=== PATIENT | female | born 1955 | race Caucasian/White ===

== ENCOUNTER 2017-12-21 18:09 | Inpatient (IN) | payer MEDICAID ==
[~2017-12-21] VITALS: Ht 167.6 cm; Wt 70.8 kg
[~2017-12-21 18:09] MED LIST: AFRIN15 ML NS; ALPRAZOLAM; AMOXICILLIN875 MG PO; APAP500 PO; ATIVAN0.5 MG PO; BROVANA15 MCG/2 M INH; BUSPIRONE HCL10 MG PO; CLONAZEPAM 1 MG1 M1 PO; CYMBALTA30 MG PO; DOXYCYCLINE 10100 MG PO; DULOXETINE HCL30 MG PO; DUONEB 2.5-0.5 M3 ML INH; FLEXERIL PO; GABAPENTIN 100100 MG PO; HYDROCODONE-AP1 EAC6 PO; IBUPROFEN 800800 M1 PO; LEVAQUIN 250 M250 MG PO; LIPITOR 20 MG T20 M1 PO; LIPITOR10 MG PO; MOBIC7.5 M1 PO; MUCINEX TA600 MG/TA2 PO; MYSOLINE50 MG PO; NORCO 5-325 TA1 EAC1 PO; NORCO 5-325 TA1 EACH PO; NORVASC2.5 MG PO; PANTOPRAZOLE SO40 M1 PO; PAXIL30 MG; PAXIL30 MG PO; PREDNISONE 10 M10 MG PO; PREDNISONE50 MG PO; PRILOSEC 20 MG20 MG PO; PRIMIDONE50 MG PO; PROPRANOLOL 1010 MG PO; PROPRANOLOL 4040 MG PO; ROBAXIN 750 MG750 M1 PO; SEROQUEL 25 MG25 M1 PO; SINGULAIR 10 MG10 MG PO; SYMBICORT160 MCG/4. PO; TRAZODONE HCL50 MG PO; VENTOLIN HFA 1818 GM INH; VITAMIN D1000 UNI1 PO; XOPENEX 0.63 MG/3 M1 INH; ZYRTEC10 MG PO
[2017-12-21 18:25] VITALS: BP 140/86
[2017-12-21 19:06] LABS: BE -0.2 mmol/L (-2 to +3); HCO3 25.2 mmol/L (22.0-26.0); PCO2 43.8 mmHg (35.0-45.0); pH 7.377 (7.340-7.450)
[2017-12-21 19:08] LABS: PO2 49.8 mmHg (75.0-100.0)
[2017-12-21 19:23] LABS: ABSOLUTE BASOPHILS 0.1 thou/uL (0.0-0.2); ABSOLUTE EOSINOPHILS 0.4 thou/uL (0.0-0.7); ABSOLUTE LYMPHOCYTES 3.6 thou/uL (0.8-5.3); ABSOLUTE MONOCYTES 0.7 thou/uL (0.0-1.2); ABSOLUTE NEUTROPHILS 6.1 thou/uL (1.6-8.1); BASOPHILS 1.2 %; EOSINOPHILS 3.2 %; HEMATOCRIT 41.4 % (37.0-47.0); HEMOGLOBIN 13.7 gm/dL (12.0-15.0); LYMPHOCYTES 32.6 %; MCH 29.2 pg (26.0-34.0); MCHC 33.1 g/dL (28.0-37.0); MCV 88.2 fL (80.0-100.0); MONOCYTES 6.7 %; MPV 8.4 fl. (7.2-11.1); NUCLEATED RBCS 0 /100WBC; PLATELET COUNT* 248 thou/uL (150-400); POLYS 56.3 %; RDW-CV 14.7 % (10.5-14.5); WBC 10.9 thou/uL (4.0-11.0)
[2017-12-21 19:33] LABS: ANION GAP 5 mmol/L (7-16); BUN 20 mg/dL (7-18); CALCIUM 8.7 mg/dL (8.5-10.1); CHLORIDE 104 mmol/L (98-107); CO2 31 mmol/L (21-32); GLUCOSE 92 mg/dL (70-99); POTASSIUM 4.6 mmol/L (3.5-5.1); SODIUM 140 mmol/L (136-145)
[2017-12-21 19:40] LABS: ALBUMIN 3.2 g/dL (3.4-5.0); ALKALINE PHOSPHATASE 92 U/L (46-116); SGOT 16 U/L (15-37); SGPT 16 U/L (30-65); TOTAL BILIRUBIN 0.3 mg/dL (<0.1-1.0); TOTAL PROTEIN 7.2 g/dL (6.4-8.2); TROPONIN-I LEVEL <0.06 ng/mL (<0.06)
[2017-12-21 20:27] LABS: URINE BILIRUBIN NEGATIVE (Negative); URINE BLOOD NEGATIVE (Negative); URINE CLARITY CLEAR; URINE COLOR YELLOW; URINE GLUCOSE-RANDOM NEGATIVE (Negative); URINE KETONES NEGATIVE (Negative); URINE LEUKOCYTES-REFLEX TRACE (Negative); URINE NITRITE-REFLEX NEGATIVE (Negative); URINE PROTEIN NEGATIVE (Negative); URINE SPECIFIC GRAVITY 1.025 (1.005-1.030); URINE UROBILINOGEN 0.2 E.U./dl (0.2-1.0)
[2017-12-21 20:33] LABS: BACTERIA-REFLEX 1-9 Few /HPF (None Seen); CRYSTALS None Seen /LPF (None Seen); HYALINE CASTS 4-10 Moderate /LPF (None Seen); MUCUS 0-3 Light strn/LPF (None Seen); SQUAMOUS >10 Many /LPF (0-3); URINE WBC-REFLEX 0-5 Rare /HPF (0-5)
[2017-12-21 20:34] LABS: URINE RBC None Seen /HPF (0-2)
--- NOTE | 2017-12-21 21:15 | NUR ---
PT ADMITTED TO FLOOR PER CART ACCOMPANIED BY FAMILY WITH BELONGINGS. WALKS WITH ASSIST FAIRLY STEADY GAIT FROM CART TO BED. AO X4, FLAT, SLIGHTLY ANXIOUS. DENIES PAIN AT PRESENT, STATES SHE NEEDS HER NIGHT MEDICATIONS. HISTORY OBTAINED AND ASSESSMENT PERFORMED, SEE ADMIT NOTES.CALL LITE IN EASY REACH, BED ALARM ON FOR SAFETY. WILL CONTINUE TO MONITOR AND PROVIDE CARES NEEDED.
[2017-12-21 21:30] VITALS: BP 112/67; BP 112/74
[2017-12-22 05:10] LABS: HEMATOCRIT 37.2 % (37.0-47.0); HEMOGLOBIN 12.4 gm/dL (12.0-15.0); MCH 29.1 pg (26.0-34.0); MCHC 33.4 g/dL (28.0-37.0); MCV 87.1 fL (80.0-100.0); MPV 8.9 fl. (7.2-11.1); RBC 4.27 mil/uL (4.20-5.00); WBC 6.7 thou/uL (4.0-11.0)
[2017-12-22 05:29] LABS: ALBUMIN 2.8 g/dL (3.4-5.0); CALCIUM 8.3 mg/dL (8.5-10.1); CREATININE 1.1 mg/dL (0.6-1.3); POTASSIUM 5.3 mmol/L (3.5-5.1); TOTAL BILIRUBIN 0.1 mg/dL (<0.1-1.0); TOTAL PROTEIN 6.4 g/dL (6.4-8.2)
--- NOTE | 2017-12-22 06:43 | NUR ---
NEW ADMISSION OVERNIGHT. PT HAS SLEPT FAIRLY WELL SINCE ADMIT, NO COMPLAINTS OF PAIN OR PROBLEMS. CONGESTED COUGH HEARD, RT TX GIVEN. AM LAB. O23L. INCONTINENT BRIEF ON. ABLE TO USE CALL LITE AND MAKE NEEDS KNOWN, BED ALARM ON FOR SAFETY. UP WITH SBA TO BR TO VOID ALSO. AM LABS DRAWN.
[2017-12-22 08:25] VITALS: BP 137/77
--- NOTE | 2017-12-22 11:20 | NUR ---
CM SPOKE TO THE PATIENT TO DISCUSS HOME SITUATION, DISCHARGE PLANNING, AND TO INFORM OF THE ROLE OF CM. PATIENT ALERT AND ORIENTED. PATIENT RESIDES AT HOME ALONE. PATIENT HAS CAREGIVER SERVICES THRU [facility], AND THEY PROVIDE A NURSE ONCE PER WEEK. PATIENT PAYS A SERVICE TO CLEAN HER HOME AND HER DTR ASSIST WITH MEALS. PATIENT USES HOME O2 AND NEBULIZER. PATIENT HAS NO HX OF HH OR SNF, AND PLANS TO RETURN HOME AT D/C. CM WILL REMAIN AVAILABLE TO TO ASSIST AND FOLLOW NEEDED.
--- NOTE | 2017-12-22 14:43 | EKG ---
[place] [address] ELECTROCARDIOGRAM REPORT Name: ANAND ROBB Room: [address] ADM IN M.R.#: [id number] Admission: 12/21/17 Attend Phys: Raza Barrientos Discharge: Date of : 55 Report #: [id number] THIS REPORT FOR: //name// [facility] ED Test Date: 2017-12-21 Test Time: 18:50:33 Pat Name: ANAND ROBB Department: Room: [facility] Gender: F Loading Unit Operator Powder Charging: Viji BERMAN : 1955 Requested By: Anne Potter Order Number: [id number] MD: Al Lowe Measurements Intervals [place] Rate: 61 P: 44 CA: 147 QRS: 65 QRSD: 88 T: 55 QT: 407 QTc: 410 Interpretive Statements Sinus rhythm Low voltage, extremity leads Compared to ECG 06/23/2017 16:41:00 Low QRS voltage now present Electronically Signed On 12-22-2017 14:43:07 CDT by Al Lowe [email or web address] <ELECTRONICALLY SIGNED> By: Al Lowe MD, FACC 12/22/17 1443 1850 1850 Al Lowe MD, FAC /EPI
[2017-12-22 16:00] VITALS: BP 120/75
--- NOTE | 2017-12-22 19:54 | NUR ---
PATIENT HAS BEEN A/O X 4 THIS SHIFT. MEDICATED FOR HEADACHE WITH TYLENOL WITH RELIEF. O2 IN PLACE WHEN PATIENT WEARS IT. ROOM AIR SAT NOTED TO BE 91-92%. UP WITH STAND BY ASSIST TO BATHROOM. TOLERATING DIET. TO HAVE REPEAT CHEST XRAY IN AM. CONTINUES ON RT TREATMENTS. URINE SENT PER ORDERS. HOURLY ROUNDING COMPLETED. CALL LIGHT WITHIN REACH. WILL CONTINUE WITH PLAN OF CARE.
[2017-12-22 22:22] VITALS: BP 112/67
[2017-12-23 05:07] LABS: HEMATOCRIT 36.6 % (37.0-47.0); HEMOGLOBIN 12.2 gm/dL (12.0-15.0); MCH 28.8 pg (26.0-34.0); MCHC 33.2 g/dL (28.0-37.0); MCV 86.9 fL (80.0-100.0); MPV 8.7 fl. (7.2-11.1); RBC 4.22 mil/uL (4.20-5.00); WBC 10.6 thou/uL (4.0-11.0)
[2017-12-23 05:15] LABS: CALCIUM 8.8 mg/dL (8.5-10.1); CREATININE 1.1 mg/dL (0.6-1.3); MAGNESIUM 1.7 mg/dL (1.8-2.4); POTASSIUM 5.4 mmol/L (3.5-5.1)
[2017-12-23 09:10] VITALS: BP 125/75
--- NOTE | 2017-12-23 10:33 | NUR ---
IV RESTARTED THIS AM. IV LEVAQUIN STARTED AND PATIENT CALLED STATING SHE HAD A RED STREAK GOING UP VEIN. IV LEVAQUIN STOPPED AND DR NOTIFIED OF THE ABOVE.
[2017-12-23 16:54] VITALS: BP 139/89
--- NOTE | 2017-12-23 18:51 | NUR ---
PATIENT HAS BEEN A/O X 4 THIS SHIFT. HAS DENIED PAIN OR SHORTNESS OF AIR. HAS BEEN ON ROOM AIR WITH O2 SAT 90-92%. HAS DRY NON PRODUCTIVE COUGH. UP AD KAMRAN IN ROOM. IV STEROIDS ADMINISTERED. CONTINUES ON BREATHING TREATMENTS. HAD REPEAT CHEST XRAY TODAY. HOPEFUL TO BE DISCHARGED HOME SOON. HOURLY ROUNDING COMPLETED. CALL LIGHT WITHIN REACH. WILL CONTINUE WITH PLAN OF CARE.
[2017-12-23 19:42] VITALS: BP 104/66
[2017-12-24 05:06] LABS: HEMATOCRIT 35.6 % (37.0-47.0); HEMOGLOBIN 11.9 gm/dL (12.0-15.0); MCH 28.7 pg (26.0-34.0); MCHC 33.4 g/dL (28.0-37.0); MCV 86.1 fL (80.0-100.0); MPV 8.6 fl. (7.2-11.1); NUCLEATED RBCS 0 /100WBC; PLATELET COUNT* 303 thou/uL (150-400); RBC 4.13 mil/uL (4.20-5.00); RDW-CV 14.9 % (10.5-14.5); WBC 10.7 thou/uL (4.0-11.0)
[2017-12-24 05:42] LABS: ALBUMIN 2.9 g/dL (3.4-5.0); CALCIUM 8.6 mg/dL (8.5-10.1); POTASSIUM 5.3 mmol/L (3.5-5.1); TOTAL BILIRUBIN 0.2 mg/dL (<0.1-1.0); TOTAL PROTEIN 6.5 g/dL (6.4-8.2)
[2017-12-24 06:03] LABS: ABSOLUTE LYMPHOCYTES 1.6 thou/uL (0.8-5.3); ABSOLUTE MONOCYTES 0.1 thou/uL (0.0-1.2); ANISOCYTOSIS 1+; PLATELET ESTIMATE ADEQUATE; POIKILOCYTOSIS 1+
--- NOTE | 2017-12-24 06:09 | NUR ---
ASSESSMENT COMPLETE. PT SLEPT MOST OF THE NIGHT. TYLENOL GIVEN FOR HEADACHE. PT DENIES AND N/V. PT IS ON 2L PER NC WITH ADEQUATE SATS. TREMORS NOTED AND PT STATES THEY WORSEN WITH SOLUMEDROL. PT HAS IV IN RIGHT HAND, SALINE LOCKED AND FLUSHES WITHOUT DIFFICULTY. PT IS UP STANDBY ASSIST TO BATHROOM. PT TURNS SELF IN BED DURING THE NIGHT. SEE ASSESSMENT AND VITALS FOR OTHER DETAILS. CALL LIGHT WITHIN REACH, WILL CONTINUE PLAN OF CARE
[2017-12-24 08:15] VITALS: BP 131/74
[2017-12-24] MEDS ORDERED: PREDNISONE 10 M10 MG PO (11:01)
[2017-12-24] MEDS ORDERED: LEVAQUIN 500 M500 M3 PO (11:02)
[2017-12-24] MEDS ORDERED: PROTONIX40 M1 PO (11:03)
[2017-12-24 11:04] VITALS: BP 131/74
[2017-12-24 12:07] VITALS: BP 131/74
--- NOTE | 2017-12-24 12:09 | NUR ---
PATIENT IS ALERT AND ORIENTED TODAY. VITAL SIGNS STABLE ON ROOM AIR TODAY. UP AD KAMRAN IN ROOM. NO COMPLAINTS OF ANY PAIN. PATIENT IS BEING DISCHARGED TO HOME. PRESCRIPTIONS AND DISCHARGE INSTRUCTIONS GIVEM WITH QUESTIONS ANSWERED FOR PATIENT. LEFT VIA WHEELCHAIR TO HOME.
== END 2017-12-24 12:14 | disposition home or self-care (01) | DRG 177 ==
LOC: M.ERS 18:09 → M.TBA-ER 20:04 → M.3W 20:04
PROVIDERS: Emergency Medicine; Internal Medicine; Personal Emergency Response Attendant; ADMIT Internal Medicine
DX: J15.8 Pneumonia due to other specified bacteria (principal); J96.01 Acute respiratory failure with hypoxia; J44.1 Chronic obstructive pulmonary disease with (acute) exacerbation; J44.0 Chronic obstructive pulmonary disease with (acute) lower respiratory infection; F17.210 Nicotine dependence, cigarettes, uncomplicated; F12.90 Cannabis use, unspecified, uncomplicated; N18.2 Chronic kidney disease, stage 2 (mild); F31.9 Bipolar disorder, unspecified; G25.0 Essential tremor; B19.20 Unspecified viral hepatitis C without hepatic coma; I12.9 Hypertensive chronic kidney disease with stage 1 through stage 4 chronic kidney disease, or unspecified chronic kidney disease; Z88.8 Allergy status to other drugs, medicaments and biological substances; Z82.5 Family history of asthma and other chronic lower respiratory diseases; Z82.49 Family history of ischemic heart disease and other diseases of the circulatory system

== ENCOUNTER 2018-01-15 14:06 | Emergency (ER) | payer MEDICAID ==
[~2018-01-15] VITALS: Ht 167.6 cm; Wt 72.6 kg
[~2018-01-15 14:06] MED LIST changes: +LEVAQUIN 500 M500 M3 PO; +PROTONIX40 M1 PO
[2018-01-15] MEDS ORDERED: FLONASE 0.05%50 MCG NASAL (14:28)
[2018-01-15] MEDS ORDERED: BENZONATATE200 MG PO (15:15)
[2018-01-15] MEDS ORDERED: VENTOLIN HFA INH8 GM INH (15:15)
[2018-01-15] MEDS ORDERED: MEDROLDOSEPACK PO (15:15)
[2018-01-15 15:29] VITALS: BP 161/95
== END 2018-01-15 15:30 | disposition home or self-care (01) ==
LOC: M.ERS 14:06
DX: J40 Bronchitis, not specified as acute or chronic (principal); J44.9 Chronic obstructive pulmonary disease, unspecified; I10 Essential (primary) hypertension; F31.9 Bipolar disorder, unspecified; F17.210 Nicotine dependence, cigarettes, uncomplicated; Z86.19 Personal history of other infectious and parasitic diseases; Z88.8 Allergy status to other drugs, medicaments and biological substances; Z88.6 Allergy status to analgesic agent

== ENCOUNTER 2018-03-25 09:55 | Emergency (ER) | payer MEDICAID ==
[~2018-03-25] VITALS: Ht 165.1 cm; Wt 68.0 kg
[~2018-03-25 09:55] MED LIST changes: +BENZONATATE200 MG PO; +FLONASE 0.05%50 MCG NASAL; +MEDROLDOSEPACK PO; +VENTOLIN HFA INH8 GM INH
[2018-03-25] MEDS ORDERED: BACTRIM DS TAB1 EACH PO (10:11)
[2018-03-25 10:43] LABS: ABSOLUTE BASOPHILS 0.1 thou/uL (0.0-0.2); ABSOLUTE EOSINOPHILS 0.1 thou/uL (0.0-0.7); ABSOLUTE LYMPHOCYTES 1.4 thou/uL (0.8-5.3); ABSOLUTE MONOCYTES 0.9 thou/uL (0.0-1.2); ABSOLUTE NEUTROPHILS 6.3 thou/uL (1.6-8.1); EOSINOPHILS 1.6 %; HEMATOCRIT 37.6 % (37.0-47.0); HEMOGLOBIN 12.2 gm/dL (12.0-15.0); MCH 28.9 pg (26.0-34.0); MCHC 32.5 g/dL (28.0-37.0); MCV 88.8 fL (80.0-100.0); MONOCYTES 9.9 %; MPV 8.7 fl. (7.2-11.1); NUCLEATED RBCS 0 /100WBC; PLATELET COUNT* 271 thou/uL (150-400); POLYS 71.5 %; RBC 4.23 mil/uL (4.20-5.00); RDW-CV 15.3 % (10.5-14.5); WBC 8.9 thou/uL (4.0-11.0)
[2018-03-25 11:00] LABS: ANION GAP 6 mmol/L (7-16); BUN 15 mg/dL (7-18); CALCIUM 8.2 mg/dL (8.5-10.1); CHLORIDE 105 mmol/L (98-107); CO2 29 mmol/L (21-32); CREATININE 1.2 mg/dL (0.6-1.3); GLUCOSE 114 mg/dL (70-99); POTASSIUM 3.8 mmol/L (3.5-5.1); SODIUM 140 mmol/L (136-145)
[2018-03-25 11:12] LABS: ALBUMIN 3.2 g/dL (3.4-5.0); ALKALINE PHOSPHATASE 69 U/L (46-116); NT-PRO BRAIN NAT PEPTIDE 522 pg/mL (<300); SGOT 12 U/L (15-37); SGPT 14 U/L (30-65); TOTAL BILIRUBIN 0.3 mg/dL (<0.1-1.0); TOTAL PROTEIN 6.6 g/dL (6.4-8.2); TROPONIN-I LEVEL <0.06 ng/mL (<0.06)
[2018-03-25 11:33] LABS: URINE BLOOD NEGATIVE (Negative); URINE CLARITY CLEAR; URINE COLOR YELLOW; URINE GLUCOSE-RANDOM NEGATIVE (Negative); URINE KETONES NEGATIVE (Negative); URINE LEUKOCYTES-REFLEX TRACE (Negative); URINE NITRITE-REFLEX NEGATIVE (Negative); URINE PROTEIN NEGATIVE (Negative); URINE SPECIFIC GRAVITY >= 1.030 (1.005-1.030); URINE UROBILINOGEN 0.2 E.U./dl (0.2-1.0)
[2018-03-25 11:34] LABS: ICTOTEST (BILI CONFIRMATORY) Negative (Negative); URINE BILIRUBIN 1+ (Negative)
[2018-03-25 11:41] LABS: AMP/METHAMP Negative (Negative); BACTERIA-REFLEX 1-9 Few /HPF (None Seen); BARBITURATES POSITIVE (Negative); BENZODIAZEPINES Negative (Negative); COCAINE Negative (Negative); CRYSTALS None Seen /LPF (None Seen); HYALINE CASTS 0-3 Few /LPF (None Seen); METHADONE Negative (Negative); MUCUS 0-3 Light strn/LPF (None Seen); OPIATES Negative (Negative); PCP Negative (Negative); SQUAMOUS 0-3 Few /LPF (0-3); THC POSITIVE (Negative); URINE RBC 0-2 Rare /HPF (0-2); URINE WBC-REFLEX 0-5 Rare /HPF (0-5)
[2018-03-25] MEDS ORDERED: LIDODERM1 EACH TRANSDERM (11:53)
[2018-03-25 12:10] VITALS: BP 131/76
--- NOTE | 2018-03-25 15:15 | EKG ---
[place] [address] ELECTROCARDIOGRAM REPORT Name: HOLLY ROBBVA BETHANIE [facility] [id number] Admission: 03/25/18 Attend Phys: Discharge: 03/25/18 Date of : 55 Report #: [id number] THIS REPORT FOR: //name// [facility] ED Test Date: 2018-03-25 Test Time: 10:04:45 Pat Name: ANAND ROBB Department: Room: Gender: F Tool Planer Set Up Operator: PO : 1955 Requested By: Jarrell Khan Order Number: [id number] MD: Ulises Robert Measurements Intervals [place] Rate: 87 P: 65 CO: 134 QRS: 59 QRSD: 84 T: 55 QT: 359 QTc: 432 Interpretive Statements Sinus rhythm Low voltage, extremity leads Compared to ECG 12/21/2017 18:50:33 No significant changes Electronically Signed On 03-25-2018 15:15:31 CDT by Ulises Robert [email or web address] <ELECTRONICALLY SIGNED> By: Ulises Robert MD, [facility] 03/25/18 1515 1004 1004 Ulises Robert MD, FACC /EPI
== END 2018-03-25 12:11 | disposition home or self-care (01) ==
LOC: M.ERS 09:55
PROVIDERS: Emergency Medicine Emergency Medical Services
DX: S46.092A Other injury of muscle(s) and tendon(s) of the rotator cuff of left shoulder, initial encounter (principal); R41.82 Altered mental status, unspecified; F41.9 Anxiety disorder, unspecified; N39.0 Urinary tract infection, site not specified; F32.9 Major depressive disorder, single episode, unspecified; J44.9 Chronic obstructive pulmonary disease, unspecified; I10 Essential (primary) hypertension; F17.210 Nicotine dependence, cigarettes, uncomplicated; Z90.89 Acquired absence of other organs; Z98.890 Other specified postprocedural states; Z88.5 Allergy status to narcotic agent; Z88.8 Allergy status to other drugs, medicaments and biological substances; X58.XXXA Exposure to other specified factors, initial encounter; Y93.89 Activity, other specified; Y92.89 Other specified places as the place of occurrence of the external cause; Y99.8 Other external cause status

== ENCOUNTER 2018-09-12 09:51 | Emergency (ER) | payer MEDICAID ==
[~2018-09-12] VITALS: Ht 167.6 cm; Wt 60.8 kg
[~2018-09-12 09:51] MED LIST changes: +BACTRIM DS TAB1 EACH PO; +LIDODERM1 EACH TRANSDERM
[2018-09-12] MEDS ORDERED: ACETAMINOPHEN-1 EAC1 PO (11:09)
[2018-09-12] MEDS ORDERED: ZPAK PO (11:09)
[2018-09-12] MEDS ORDERED: IBUPROFEN 600600 M1 PO (11:09)
[2018-09-12] MEDS ORDERED: LEVALBUTER1.25 MG/0. INH (11:09)
[2018-09-12] MEDS ORDERED: LIDODERM1 EACH TRANSDERM (11:19)
[2018-09-12 11:26] VITALS: BP 134/83
== END 2018-09-12 11:27 | disposition home or self-care (01) ==
LOC: M.ERS 09:51
DX: M25.511 Pain in right shoulder (principal); J20.9 Acute bronchitis, unspecified; R07.81 Pleurodynia; W01.0XXA Fall on same level from slipping, tripping and stumbling without subsequent striking against object, initial encounter; Y93.89 Activity, other specified; Y92.89 Other specified places as the place of occurrence of the external cause; Y99.8 Other external cause status; J44.9 Chronic obstructive pulmonary disease, unspecified; I10 Essential (primary) hypertension; F31.9 Bipolar disorder, unspecified; E78.00 Pure hypercholesterolemia, unspecified; F17.210 Nicotine dependence, cigarettes, uncomplicated; Z88.5 Allergy status to narcotic agent; Z88.8 Allergy status to other drugs, medicaments and biological substances; Z98.890 Other specified postprocedural states

== ENCOUNTER 2018-12-12 11:37 | Inpatient (IN) | payer MEDICAID ==
[~2018-12-12] VITALS: Ht 167.6 cm; Wt 47.2 kg
[~2018-12-12 11:37] MED LIST changes: +ACETAMINOPHEN-1 EAC1 PO; +IBUPROFEN 600600 M1 PO; +LEVALBUTER1.25 MG/0. INH; +ZPAK PO
[2018-12-12 11:38] VITALS: BP 192/115
[2018-12-12 12:04] LABS: ABSOLUTE BASOPHILS 0.2 thou/uL (0.0-0.2); ABSOLUTE EOSINOPHILS 0.2 thou/uL (0.0-0.7); ABSOLUTE LYMPHOCYTES 1.8 thou/uL (0.8-5.3); ABSOLUTE MONOCYTES 0.9 thou/uL (0.0-1.2); ABSOLUTE NEUTROPHILS 7.8 thou/uL (1.6-8.1); BASOPHILS 1.4 %; EOSINOPHILS 2.1 %; HEMATOCRIT 44.2 % (37.0-47.0); HEMOGLOBIN 14.8 gm/dL (12.0-15.0); LYMPHOCYTES 16.5 %; MCH 30.1 pg (26.0-34.0); MCHC 33.4 g/dL (28.0-37.0); MCV 90.2 fL (80.0-100.0); MONOCYTES 8.1 %; MPV 8.6 fl. (7.2-11.1); NUCLEATED RBCS 0 /100WBC; PLATELET COUNT* 320 thou/uL (150-400); POLYS 71.9 %; RDW-CV 15.7 % (10.5-14.5); WBC 10.8 thou/uL (4.0-11.0)
[2018-12-12 12:08] LABS: PROTIME 10.4 Seconds (9.20-11.50)
[2018-12-12] MEDS ORDERED: PROPRANOLOL 1010 MG PO (12:08)
[2018-12-12] MEDS ORDERED: ERGOCALCIF50000 UNIT PO (12:09)
[2018-12-12 12:17] LABS: ANION GAP 5 mmol/L (7-16); BUN 16 mg/dL (7-18); CALCIUM 8.9 mg/dL (8.5-10.1); CHLORIDE 98 mmol/L (98-107); CO2 32 mmol/L (21-32); GLUCOSE 114 mg/dL (70-99); POTASSIUM 4.4 mmol/L (3.5-5.1); SODIUM 135 mmol/L (136-145); TROPONIN-I LEVEL <0.06 ng/mL (<0.06)
[2018-12-12 12:18] LABS: ALBUMIN 3.4 g/dL (3.4-5.0); ALKALINE PHOSPHATASE 99 U/L (46-116); LIPASE 81 U/L (73-393); NT-PRO BRAIN NAT PEPTIDE 975 pg/mL (<300); SGOT 20 U/L (15-37); SGPT 17 U/L (30-65); TOTAL BILIRUBIN 0.4 mg/dL (<0.1-1.0); TOTAL PROTEIN 7.4 g/dL (6.4-8.2)
[2018-12-12 12:56] LABS: BE -1.7 mmol/L (-2 to +3); PCO2 44.2 mmHg (35.0-45.0); PO2 83.9 mmHg (75.0-100.0); pH 7.353 (7.340-7.450)
[2018-12-12 13:49] VITALS: BP 111/79
[2018-12-12 14:18] VITALS: BP 108/75
[2018-12-12 17:24] LABS: URINE BILIRUBIN NEGATIVE (Negative); URINE BLOOD NEGATIVE (Negative); URINE CLARITY CLEAR; URINE COLOR YELLOW; URINE GLUCOSE-RANDOM NEGATIVE (Negative); URINE KETONES NEGATIVE (Negative); URINE LEUKOCYTES-REFLEX NEGATIVE (Negative); URINE NITRITE-REFLEX NEGATIVE (Negative); URINE PROTEIN NEGATIVE (Negative); URINE UROBILINOGEN 0.2 E.U./dl (0.2-1.0)
[2018-12-12 17:25] LABS: AMP/METHAMP POSITIVE (Negative); BARBITURATES POSITIVE (Negative); BENZODIAZEPINES Negative (Negative); COCAINE Negative (Negative); METHADONE Negative (Negative); OPIATES POSITIVE (Negative); PCP Negative (Negative); THC Negative (Negative)
--- NOTE | 2018-12-12 17:54 | NUR ---
PATIENT ARRIVED TO UNIT AT APPROX 1330. ALERT AND OREINTED X4. ADMISSION HOSTORY AND ASSESSMENT COMPLETED AND CHARTED. VSS ON 3 LITERS 02. PATIENT ANXIOUS UPON ARRIVAL. FLUIDS AND ANTIBIOTICS INFUSED ORDERED. PAIN ADDRESSED WITH ORAL MEDICATION ONE TIME ORDER. US ORDERED FOR DRUG SCREEN AND SENT TO LAB, [facility] FOR OPIODS, BENZOS AND METH. PATIENT VERY CONCERNED ABOUT HEADACHE, THIS NURSE SAID SHE COULD NOT HAVE ANY MORE NARCOTICS AT THIS TIME. PATIENT UNSTEADY UPON ASSESSMENT, STUMBLING SHE WALKED TO THE RESTROOM AND TRIED TO WALK OUT OF THE RESTROOM WITH HER PANTS AROUND HER ANKLES. NURSING STAFF EDUCATED PATIENT ON RISK FOR FALLS AND THE OMPORTANCE OF CALLING STAFF TO BE WITH HER BEFORE SHE GETS UP SO THAT SHE DOES NOT FALL. FALL PRECAUTIONS PLACED, CALL LIGHT WITHIN REACH, HOURLY ROUNDS COMPLETED, NURSING WILL CONTINUE TO MONITOR.
[2018-12-12 19:45] VITALS: BP 125/91
[2018-12-13] VITALS: BP 115/71
[2018-12-13 04:00] VITALS: BP 101/67
[2018-12-13 04:51] LABS: CALCIUM 8.6 mg/dL (8.5-10.1); CREATININE 0.9 mg/dL (0.6-1.3); POTASSIUM 4.3 mmol/L (3.5-5.1)
[2018-12-13 04:59] LABS: ABSOLUTE LYMPHOCYTES 1.2 thou/uL (0.8-5.3); ABSOLUTE MONOCYTES 0.2 thou/uL (0.0-1.2); ABSOLUTE NEUTROPHILS 4.7 thou/uL (1.6-8.1); BASOPHILS 0.1 %; HEMATOCRIT 38.6 % (37.0-47.0); HEMOGLOBIN 12.9 gm/dL (12.0-15.0); LYMPHOCYTES 19.6 %; MCHC 33.4 g/dL (28.0-37.0); MCV 89.8 fL (80.0-100.0); MPV 9.2 fl. (7.2-11.1); NUCLEATED RBCS 0 /100WBC; PLATELET COUNT* 275 thou/uL (150-400); POLYS 77.3 %; RDW-CV 15.8 % (10.5-14.5); WBC 6.1 thou/uL (4.0-11.0)
--- NOTE | 2018-12-13 06:49 | NUR ---
RECEIVED REPORT AND ASSUMED CARE AT 1900. VSS. CARDIAC MONITORING IN PLACE. PT REPORTED A HEADACHE, PRN MEDICATION ADMIN PER ORDERS. ASSESSMENT COMPLETED CHARTED. PT UP WITH ASSIST TO BSC, ON 3L NC. MEDICATION ADMIN PER ORDERS. BED LOCKED IN LOWEST POSITION, CALL LIGHT WITHIN REACH, BED ALARM ON. HOURLY ROUNDING COMPLETED AND ALL NEEDS MET
--- NOTE | 2018-12-13 07:15 | NUR ---
CHANGE OF SHIFT BEDSIDE REPORT GIVEN PATIENT SEEN AT BEDSIDE, IN BED ASLEEP ASSUMED PATIENT CARE
[2018-12-13 08:00] VITALS: BP 108/61
--- NOTE | 2018-12-13 11:52 | NUR ---
Nutrition: Pt assessed for low BMI. Per 1jiajie, usual wt is 150-160#. Wt since admit has been 150#; today's wt is 111#. RD questioning accuracy of today's wt. Alb 3.4. Regular diet. H/o COPD, emphysema, meth use, Hep C, lyme dz, home O2 prn. Mild to moderate risk. PLEASE REWEIGH PT FOR ACCURACY. No other nutrition interventions at this time.
[2018-12-13 11:55] VITALS: BP 125/78
--- NOTE | 2018-12-13 13:33 | NUR ---
Pt is A&O. Resides at home alone. Pt states that she has a walker at home that she can use. Pt is current with [facility] [phone], through her [place] [facility]. Caregivers complete laundry, shopping, errands for Pt. Pt states that she is independent and can cook, clean and does some driving. 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 [facility] advocate in room when CM arrived, they will provide Pt with resources, Pt does not need [facility] [place] [facility]. Per Pt, she has a neighbor that bothers her. Pt's family sounds supportive and want her to move to a safer neighborhood, but Pt does not seem to want to move. No hx of HH or SNF. Goal is home at [place]. Following.
--- NOTE | 2018-12-13 15:53 | EKG ---
[place] [address] ELECTROCARDIOGRAM REPORT Name: ROBBANAND Room: [address] ADM IN M.R.#: [id number] Admission: 12/12/18 Attend Phys: Gerard Yan MD Discharge: Date of : 55 Report #: [id number] THIS REPORT FOR: //name// [facility] ED Test Date: 2018-12-12 Test Time: 11:46:42 Pat Name: ANAND ROBB Department: Room: [facility] Gender: F Outgoing Inspector: SAHIL : 1955 Requested By: Herson Chavarria Order Number: [id number] : Matt Connolly Measurements Intervals [place] Rate: 85 P: 74 [place]: 132 QRS: 56 QRSD: 87 T: 80 QT: 394 QTc: 469 Interpretive Statements Sinus rhythm Low voltage, extremity leads Compared to ECG 03/25/2018 10:04:45 No significant changes Electronically Signed On 12-13-2018 15:52:49 MANPOWER DEVELOPMENT SPECIALIST MANAGER by Matt Connolly [email or web address] <ELECTRONICALLY SIGNED> By: Matt Connolly MD, [facility] 12/13/18 1552 1146 1146 Matt Connolly MD, FACC /EPI
[2018-12-13 16:00] VITALS: BP 117/71
[2018-12-13 20:24] VITALS: BP 111/66
[2018-12-14] VITALS: BP 141/80
--- NOTE | 2018-12-14 01:12 | NUR ---
RECEIVED REPORT AND ASSUMED CARE AT 1900. VSS. CARDIAC MONITORING IN PLACE. PT DENIES COMPLAINTS OF PAIN. ASSESSMENT COMPLETED CHARTED. PT UP WITH ASSIST, ON 3L NC. BED LOCKED IN LOWEST POSITION, CALL LIGHT WITHIN REACH.
[2018-12-14 04:00] VITALS: BP 129/73
[2018-12-14 04:34] LABS: CALCIUM 8.3 mg/dL (8.5-10.1); CREATININE 0.9 mg/dL (0.6-1.3); POTASSIUM 4.3 mmol/L (3.5-5.1)
[2018-12-14 04:35] LABS: ABSOLUTE LYMPHOCYTES 1.2 thou/uL (0.8-5.3); ABSOLUTE MONOCYTES 0.2 thou/uL (0.0-1.2); ABSOLUTE NEUTROPHILS 7.6 thou/uL (1.6-8.1); BASOPHILS 0.1 %; HEMATOCRIT 36.2 % (37.0-47.0); HEMOGLOBIN 12.2 gm/dL (12.0-15.0); LYMPHOCYTES 13.1 %; MCH 30.3 pg (26.0-34.0); MCHC 33.6 g/dL (28.0-37.0); MCV 90.2 fL (80.0-100.0); NUCLEATED RBCS 0 /100WBC; PLATELET COUNT* 251 thou/uL (150-400); POLYS 84.8 %; RBC 4.01 mil/uL (4.20-5.00); RDW-CV 16.2 % (10.5-14.5); WBC 8.9 thou/uL (4.0-11.0)
--- NOTE | 2018-12-14 07:15 | NUR ---
CHANGE OF SHIFT, BEDSIDE REPORT GIVEN PATIENT DEAN AT BEDSIDE, IN BED ASLEEP ASSUMED PATIENT CARE
[2018-12-14 08:00] VITALS: BP 133/87
--- NOTE | 2018-12-14 10:25 | NUR ---
Pt discharging to home today, CM updated Pt's WILLIAM caregiver, Lazaro Willis [facility]. Lazaro will provide dc transportation.
[2018-12-14 11:30] VITALS: BP 133/84
[2018-12-14] MEDS ORDERED: CEFDINIR300 MG PO (16:07)
[2018-12-14] MEDS ORDERED: PREDNISONE 10 M10 MG PO (16:12)
[2018-12-14 16:13] VITALS: BP 133/84
--- NOTE | 2018-12-14 16:45 | NUR ---
DISCHARGE TO HOME ALL DC INSTRUCTIONS GIVEN, ACKNOWLEDGED, SIGNED COPIES GIVEN IV AND HEART MONITOR REMOVED PERSONAL BELONGING RETURNED ASSISTED OUT VIA WC GOOD CONDITION TO WAITING CAR
== END 2018-12-14 16:48 | disposition home or self-care (01) | DRG 189 ==
LOC: M.ERS 11:37 → M.2W 12:37 → M.TBA-ER 12:37 → M.2W 14:07
PROVIDERS: Emergency Medicine; ADMIT Internal Medicine
DX: J96.20 Acute and chronic respiratory failure, unspecified whether with hypoxia or hypercapnia (principal); G92 Toxic encephalopathy; J44.1 Chronic obstructive pulmonary disease with (acute) exacerbation; J44.0 Chronic obstructive pulmonary disease with (acute) lower respiratory infection; J20.9 Acute bronchitis, unspecified; B19.20 Unspecified viral hepatitis C without hepatic coma; I10 Essential (primary) hypertension; F31.9 Bipolar disorder, unspecified; G62.9 Polyneuropathy, unspecified; R25.1 Tremor, unspecified; F19.10 Other psychoactive substance abuse, uncomplicated; E78.00 Pure hypercholesterolemia, unspecified; F17.210 Nicotine dependence, cigarettes, uncomplicated; Z98.891 History of uterine scar from previous surgery; Z79.51 Long term (current) use of inhaled steroids; Z79.899 Other long term (current) drug therapy; Z88.5 Allergy status to narcotic agent; Z88.8 Allergy status to other drugs, medicaments and biological substances; Z82.5 Family history of asthma and other chronic lower respiratory diseases; Z82.49 Family history of ischemic heart disease and other diseases of the circulatory system

== ENCOUNTER 2019-01-19 13:39 | Emergency (ER) | payer MEDICAID ==
[~2019-01-19] VITALS: Ht 165.1 cm; Wt 59.0 kg
[~2019-01-19 13:39] MED LIST changes: +CEFDINIR300 MG PO; +ERGOCALCIF50000 UNIT PO
[2019-01-19] MEDS ORDERED: SYMBICORT160 MCG/4. INH (13:53)
[2019-01-19] MEDS ORDERED: CLARITIN10 MG PO (13:54)
[2019-01-19] MEDS ORDERED: KLONOPIN1 MG PO (13:54)
[2019-01-19] MEDS ORDERED: COMBIVENT INH (13:54)
[2019-01-19 14:17] LABS: HEMATOCRIT 40.8 % (37.0-47.0); HEMOGLOBIN 13.8 gm/dL (12.0-15.0); MCH 31.3 pg (26.0-34.0); MCHC 33.9 g/dL (28.0-37.0); MCV 92.3 fL (80.0-100.0); MPV 8.7 fl. (7.2-11.1); NUCLEATED RBCS 0 /100WBC; PLATELET COUNT* 330 thou/uL (150-400); RBC 4.42 mil/uL (4.20-5.00); RDW-CV 15.1 % (10.5-14.5); WBC 6.9 thou/uL (4.0-11.0)
[2019-01-19 14:35] LABS: ALBUMIN 3.4 g/dL (3.4-5.0); ALKALINE PHOSPHATASE 81 U/L (46-116); ANION GAP 8 mmol/L (7-16); BUN 12 mg/dL (7-18); CALCIUM 8.5 mg/dL (8.5-10.1); CHLORIDE 95 mmol/L (98-107); CO2 27 mmol/L (21-32); GLUCOSE 122 mg/dL (70-99); POTASSIUM 4.3 mmol/L (3.5-5.1); SGOT 18 U/L (15-37); SGPT 16 U/L (30-65); SODIUM 130 mmol/L (136-145); TOTAL BILIRUBIN 0.3 mg/dL (<0.1-1.0); TOTAL PROTEIN 6.9 g/dL (6.4-8.2); TROPONIN-I LEVEL <0.06 ng/mL (<0.06)
[2019-01-19 14:54] LABS: ABSOLUTE EOSINOPHILS 0.7 thou/uL (0.0-0.7); ABSOLUTE LYMPHOCYTES 2.3 thou/uL (0.8-5.3); ABSOLUTE MONOCYTES 0.5 thou/uL (0.0-1.2); ABSOLUTE NEUTROPHILS 3.4 thou/uL (1.6-8.1); PLATELET ESTIMATE ADEQUATE
[2019-01-19] MEDS ORDERED: ZPAK PO (15:20)
[2019-01-19 15:35] VITALS: BP 132/87
--- NOTE | 2019-01-20 18:18 | EKG ---
[place] [address] ELECTROCARDIOGRAM REPORT Name: HOLLY ROBBLUCIA KOVACS Room: [facility]#: [id number] Admission: 01/19/19 Attend Phys: Discharge: 01/19/19 Date of : 55 Report #: [id number] THIS REPORT FOR: //name// [facility] ED Test Date: 2019-01-19 Test Time: 13:59:39 Pat Name: ANAND ROBB Department: Room: Gender: F Police Officer: : 1955 Requested By: Bret Harris Order Number: [id number] MD: Al Lowe Measurements Intervals [place] Rate: 69 P: 75 NV: 135 QRS: 72 QRSD: 98 T: 63 QT: 412 QTc: 442 Interpretive Statements Sinus rhythm Nonspecific T abnrm, anterolateral leads Compared to ECG 12/12/2018 11:46:42 No significant changes Electronically Signed On 01-20-2019 18:18:46 CDT by Al Lowe [email or web address] <ELECTRONICALLY SIGNED> By: Al Lowe MD, [facility] 01/20/19 1818 D: 049 58 Al Lowe MD, FACC /EPI
== END 2019-01-19 15:35 | disposition home or self-care (01) ==
LOC: M.ERS 13:39
PROVIDERS: Nurse Practitioner Family
DX: J18.9 Pneumonia, unspecified organism (principal); R68.84 Jaw pain; F17.210 Nicotine dependence, cigarettes, uncomplicated; I10 Essential (primary) hypertension; J44.9 Chronic obstructive pulmonary disease, unspecified; F31.9 Bipolar disorder, unspecified; G62.9 Polyneuropathy, unspecified; E78.00 Pure hypercholesterolemia, unspecified; Z88.8 Allergy status to other drugs, medicaments and biological substances; Z91.048 Other nonmedicinal substance allergy status; Z88.5 Allergy status to narcotic agent; Z98.890 Other specified postprocedural states; Z90.89 Acquired absence of other organs

== ENCOUNTER 2019-01-30 09:56 | Emergency (ER) | payer MEDICAID ==
[~2019-01-30] VITALS: Ht 162.6 cm; Wt 59.0 kg
[~2019-01-30 09:56] MED LIST changes: +CLARITIN10 MG PO; +COMBIVENT INH; +KLONOPIN1 MG PO; +SYMBICORT160 MCG/4. INH
[2019-01-30] MEDS ORDERED: PROPRANOLOL 1010 MG PO (10:10)
[2019-01-30 10:37] LABS: HEMATOCRIT 41.5 % (37.0-47.0); MPV 8.2 fl. (7.2-11.1); WBC 7.6 thou/uL (4.0-11.0)
[2019-01-30 10:39] LABS: MCH 31.5 pg (26.0-34.0); MCHC 33.7 g/dL (28.0-37.0); MCV 93.6 fL (80.0-100.0); NUCLEATED RBCS 0 /100WBC; PLATELET COUNT* 266 thou/uL (150-400); RBC 4.44 mil/uL (4.20-5.00); RDW-CV 15.2 % (10.5-14.5)
[2019-01-30 10:47] LABS: APTT 26.5 Seconds (25.0-31.3); PROTIME 9.8 Seconds (9.20-11.50)
[2019-01-30 10:56] LABS: ANION GAP 5 mmol/L (7-16); BUN 11 mg/dL (7-18); CALCIUM 8.7 mg/dL (8.5-10.1); CHLORIDE 100 mmol/L (98-107); CO2 33 mmol/L (21-32); CREATININE 0.9 mg/dL (0.6-1.3); GLUCOSE 106 mg/dL (70-99); POTASSIUM 4.3 mmol/L (3.5-5.1); SODIUM 138 mmol/L (136-145); TROPONIN-I LEVEL <0.06 ng/mL (<0.06)
[2019-01-30 10:57] LABS: ALBUMIN 3.4 g/dL (3.4-5.0); ALKALINE PHOSPHATASE 77 U/L (46-116); LIPASE 71 U/L (73-393); MAGNESIUM 1.9 mg/dL (1.8-2.4); NT-PRO BRAIN NAT PEPTIDE 1153 pg/mL (<300); SGOT 17 U/L (15-37); SGPT 14 U/L (30-65); TOTAL BILIRUBIN 0.2 mg/dL (<0.1-1.0); TOTAL PROTEIN 6.9 g/dL (6.4-8.2)
[2019-01-30 11:47] LABS: ABSOLUTE EOSINOPHILS 1.4 thou/uL (0.0-0.7); ABSOLUTE LYMPHOCYTES 1.7 thou/uL (0.8-5.3); ABSOLUTE MONOCYTES 0.3 thou/uL (0.0-1.2); ABSOLUTE NEUTROPHILS 4.2 thou/uL (1.6-8.1); PLATELET ESTIMATE ADEQUATE
[2019-01-30 12:20] LABS: URINE BILIRUBIN NEGATIVE (Negative); URINE BLOOD NEGATIVE (Negative); URINE CLARITY CLEAR; URINE COLOR YELLOW; URINE GLUCOSE-RANDOM NEGATIVE (Negative); URINE KETONES NEGATIVE (Negative); URINE LEUKOCYTES-REFLEX 1+ (Negative); URINE NITRITE-REFLEX NEGATIVE (Negative); URINE PROTEIN NEGATIVE (Negative); URINE UROBILINOGEN 0.2 E.U./dl (0.2-1.0)
[2019-01-30] MEDS ORDERED: PREDNISONE 20 M20 M1 PO (12:26)
[2019-01-30 12:27] LABS: AMP/METHAMP Negative (Negative); BARBITURATES POSITIVE (Negative); BENZODIAZEPINES Negative (Negative); COCAINE Negative (Negative); METHADONE Negative (Negative); OPIATES Negative (Negative); PCP Negative (Negative); THC Negative (Negative)
[2019-01-30 12:33] LABS: BACTERIA-REFLEX 1-9 Few /HPF (None Seen); CASTS None Seen /LPF (None Seen); CRYSTALS None Seen /LPF (None Seen); MUCUS 0-3 Light strn/LPF (None Seen); SQUAMOUS 0-3 Few /LPF (0-3); URINE RBC 0-2 Rare /HPF (0-2); URINE WBC-REFLEX 6-15 Few /HPF (0-5)
[2019-01-30] MEDS ORDERED: ALBUTEROL2.5 MG/3 M INH (12:37)
[2019-01-30 12:52] VITALS: BP 182/104
--- NOTE | 2019-01-31 13:06 | EKG ---
[place] [address] ELECTROCARDIOGRAM REPORT Name: HOLLY ROBBLUCIA KOVACS [id number] Admission: 01/30/19 Attend Phys: Discharge: 01/30/19 Date of : 55 Report #: [id number] THIS REPORT FOR: //name// [facility] ED Test Date: 2019-01-30 Test Time: 10:02:46 Pat Name: ANAND ROBB Department: Room: Gender: F Fiberglasser: Viji BERMAN : 1955 Requested By: Fuad Harrison Order Number: [id number] MD: Ulises Robert Measurements Intervals [place] Rate: 79 P: 65 [place]: 140 QRS: 54 QRSD: 155 T: 73 QT: 385 QTc: 442 Interpretive Statements Sinus rhythm supraventricular premature complex Borderline T abnormalities, lateral leads Artifact in lead(s) I,II,aVR,aVL,V2,V4,V5,V6 Compared to ECG 01/19/2019 13:59:39 no change Electronically Signed On 01-31-2019 13:06:40 CDT by Ulises Robert [email or web address] <ELECTRONICALLY SIGNED> By: Ulises Robert MD, FACC 01/31/19 1306 1002 1002 Ulises Robert MD, [facility] /EPI
== END 2019-01-30 12:53 | disposition home or self-care (01) ==
LOC: M.ERS 09:56
PROVIDERS: Family Medicine
DX: J44.1 Chronic obstructive pulmonary disease with (acute) exacerbation (principal); I10 Essential (primary) hypertension; F31.9 Bipolar disorder, unspecified; E78.00 Pure hypercholesterolemia, unspecified; F17.210 Nicotine dependence, cigarettes, uncomplicated; Z88.5 Allergy status to narcotic agent; Z88.8 Allergy status to other drugs, medicaments and biological substances

== ENCOUNTER 2019-06-08 16:36 | Inpatient (IN) | payer MEDICAID ==
[~2019-06-08] VITALS: Ht 165.1 cm; Wt 55.6 kg
[~2019-06-08 16:36] MED LIST changes: +ALBUTEROL2.5 MG/3 M INH; +PREDNISONE 20 M20 M1 PO
[2019-06-08 16:46] VITALS: BP 191/101
[2019-06-08] MEDS ORDERED: MAXALT MLT5 MG PO (16:50)
[2019-06-08] MEDS ORDERED: IBUPROFEN 200200 M1 PO (16:51)
[2019-06-08] MEDS ORDERED: TYLENOL EXTRA500 MG PO (16:52)
[2019-06-08 17:26] LABS: HEMATOCRIT 41.8 % (37.0-47.0); HEMOGLOBIN 14.1 gm/dL (12.0-15.0); MCH 31.8 pg (26.0-34.0); MCHC 33.7 g/dL (28.0-37.0); MCV 94.4 fL (80.0-100.0); MPV 8.2 fl. (7.2-11.1); NUCLEATED RBCS 0 /100WBC; PLATELET COUNT* 285 thou/uL (150-400); RBC 4.42 mil/uL (4.20-5.00); RDW-CV 14.6 % (10.5-14.5); WBC 6.7 thou/uL (4.0-11.0)
[2019-06-08 17:34] LABS: BE 2.1 mmol/L (-2 to +3); PCO2 43.6 mmHg (35.0-45.0); PO2 82.9 mmHg (75.0-100.0); pH 7.412 (7.340-7.450)
[2019-06-08 17:47] LABS: ANION GAP 4 mmol/L (7-16); BUN 11 mg/dL (7-18); CALCIUM 8.6 mg/dL (8.5-10.1); CHLORIDE 91 mmol/L (98-107); CO2 31 mmol/L (21-32); CREATININE 0.9 mg/dL (0.6-1.3); GLUCOSE 79 mg/dL (70-99); POTASSIUM 4.5 mmol/L (3.5-5.1); SODIUM 126 mmol/L (136-145)
[2019-06-08 17:49] LABS: ALBUMIN 3.5 g/dL (3.4-5.0); ALKALINE PHOSPHATASE 74 U/L (46-116); NT-PRO BRAIN NAT PEPTIDE 528 pg/mL (<300); SGOT 16 U/L (15-37); SGPT 8 U/L (30-65); TOTAL BILIRUBIN 0.4 mg/dL (<0.1-1.0); TOTAL PROTEIN 6.7 g/dL (6.4-8.2); TROPONIN-I LEVEL <0.06 ng/mL (<0.06)
[2019-06-08 18:06] LABS: ABSOLUTE EOSINOPHILS 0.7 thou/uL (0.0-0.7); ABSOLUTE LYMPHOCYTES 2.2 thou/uL (0.8-5.3); ABSOLUTE MONOCYTES 0.5 thou/uL (0.0-1.2); ABSOLUTE NEUTROPHILS 3.4 thou/uL (1.6-8.1)
[2019-06-08 18:07] LABS: PLATELET ESTIMATE ADEQUATE
[2019-06-08 20:10] LABS: CALCIUM 8.1 mg/dL (8.5-10.1); CREATININE 0.7 mg/dL (0.6-1.3); POTASSIUM 4.6 mmol/L (3.5-5.1)
[2019-06-08 21:39] VITALS: BP 135/85
[2019-06-08 21:45] VITALS: BP 133/79
[2019-06-09] MEDS ORDERED: NICOTINE TRANSD14 M1 TRANSDERM (03:02)
[2019-06-09] MEDS ORDERED: CLONAZEPAM 1 MG1 M1 PO (03:03)
[2019-06-09] MEDS ORDERED: SYMBICORT160 MCG/4. INH (03:05)
[2019-06-09] MEDS ORDERED: FLONASE 0.05%50 MCG NASAL (03:05)
[2019-06-09] MEDS ORDERED: PROCHLORPERAZINE5 M2 PO (03:06)
[2019-06-09 04:00] VITALS: BP 93/54
[2019-06-09 04:26] LABS: HEMATOCRIT 37.3 % (37.0-47.0); HEMOGLOBIN 12.3 gm/dL (12.0-15.0); MCH 31.3 pg (26.0-34.0); MCHC 32.9 g/dL (28.0-37.0); MPV 8.4 fl. (7.2-11.1); RBC 3.93 mil/uL (4.20-5.00); RDW-CV 14.8 % (10.5-14.5); WBC 3.3 thou/uL (4.0-11.0)
[2019-06-09 04:46] LABS: CALCIUM 7.9 mg/dL (8.5-10.1); CREATININE 0.7 mg/dL (0.6-1.3); MAGNESIUM 1.6 mg/dL (1.8-2.4); POTASSIUM 4.5 mmol/L (3.5-5.1)
[2019-06-09 07:55] VITALS: BP 126/78
[2019-06-09 11:43] VITALS: BP 115/68
[2019-06-09 16:25] VITALS: BP 112/63
[2019-06-09 20:00] VITALS: BP 119/77
[2019-06-10] VITALS: BP 114/77
[2019-06-10 04:00] VITALS: BP 124/73
[2019-06-10 05:10] LABS: HEMATOCRIT 35.9 % (37.0-47.0); HEMOGLOBIN 11.8 gm/dL (12.0-15.0); MCH 31.2 pg (26.0-34.0); MCV 94.4 fL (80.0-100.0); MPV 8.8 fl. (7.2-11.1); RBC 3.8 mil/uL (4.20-5.00); RDW-CV 14.5 % (10.5-14.5); WBC 7.8 thou/uL (4.0-11.0)
[2019-06-10 05:13] LABS: CALCIUM 8.1 mg/dL (8.5-10.1); CREATININE 0.6 mg/dL (0.6-1.3); MAGNESIUM 1.6 mg/dL (1.8-2.4); POTASSIUM 4.8 mmol/L (3.5-5.1)
[2019-06-10 07:49] VITALS: BP 160/92
--- NOTE | 2019-06-10 10:57 | EKG ---
[place] [address] ELECTROCARDIOGRAM REPORT Name: ANAND ROBB Room: [address] ADM IN M.R.#: [id number] Admission: 06/08/19 Attend Phys: Sanjeev Costa MD Discharge: Date of : 55 Report #: [id number] THIS REPORT FOR: //name// [facility] ED Test Date: 2019-06-08 Test Time: 17:10:23 Pat Name: ANAND ROBB Department: Room: [facility] Gender: F Insulating Machine Operator: : 1955 Requested By: Jarrell Khan Order Number: [id number] MD: Ulises Robert Measurements Intervals [place] Rate: 64 P: 66 CA: 141 QRS: 76 QRSD: 84 T: 60 QT: 427 QTc: 441 Interpretive Statements Sinus rhythm Electronically Signed On 06-10-2019 10:57:22 CDT by Ulises Robert [email or web address] <ELECTRONICALLY SIGNED> By: Ulises Robert MD, [facility] 06/10/19 1057 1710 1710 Ulises Robert MD, FACC /EPI
--- NOTE | 2019-06-10 10:57 | EKG ---
[place] [address] ELECTROCARDIOGRAM REPORT Name: ANAND ROBB Room: [address] ADM IN M.R.#: [id number] Admission: 06/08/19 Attend Phys: Sanjeev Costa MD Discharge: Date of : 55 Report #: [id number] THIS REPORT FOR: //name// [facility] ED Test Date: 2019-06-08 Test Time: 17:00:10 Pat Name: ANAND ROBB Department: Room: [facility] Gender: F Package Liner: LAURY : 1955 Requested By: Jarrell Khan Order Number: [id number] MD: Ulises Robert Measurements Intervals [place] Rate: 65 P: 73 [place]: 141 QRS: 66 QRSD: 106 T: 51 QT: 440 QTc: 458 Interpretive Statements Sinus rhythm Low voltage, extremity and precordial leads Artifact in lead(s) I,II,III,aVR,aVL,aVF Compared to ECG 01/30/2019 10:02:46 Low QRS voltage now present Electronically Signed On 06-10-2019 10:56:39 CDT by Ulises Robert [email or web address] <ELECTRONICALLY SIGNED> By: Ulises Robert MD, [facility] 06/10/19 1056 1700 1700 Ulises Robert MD, [facility] /EPI
[2019-06-10 11:56] VITALS: BP 142/86
[2019-06-10 16:00] VITALS: BP 133/80
[2019-06-10 20:00] VITALS: BP 129/87
[2019-06-11 00:25] VITALS: BP 111/65
[2019-06-11 04:00] VITALS: BP 156/92
[2019-06-11 04:14] LABS: HEMATOCRIT 38.1 % (37.0-47.0); HEMOGLOBIN 12.4 gm/dL (12.0-15.0); MCHC 32.6 g/dL (28.0-37.0); MCV 95.1 fL (80.0-100.0); MPV 8.4 fl. (7.2-11.1); RDW-CV 14.9 % (10.5-14.5); WBC 8.3 thou/uL (4.0-11.0)
[2019-06-11 04:28] LABS: CALCIUM 8.2 mg/dL (8.5-10.1); CREATININE 0.6 mg/dL (0.6-1.3); MAGNESIUM 1.6 mg/dL (1.8-2.4); POTASSIUM 4.4 mmol/L (3.5-5.1)
[2019-06-11 09:00] VITALS: BP 164/94
[2019-06-11 11:37] VITALS: BP 159/95
[2019-06-11 20:10] VITALS: BP 157/92
[2019-06-12 07:47] VITALS: BP 135/84
[2019-06-12 17:05] VITALS: BP 159/106
[2019-06-12 19:53] VITALS: BP 152/98
[2019-06-12 23:35] VITALS: BP 169/96
[2019-06-13 05:30] VITALS: BP 145/88
[2019-06-13 05:39] LABS: HEMATOCRIT 37.7 % (37.0-47.0); HEMOGLOBIN 12.6 gm/dL (12.0-15.0); MCH 31.6 pg (26.0-34.0); MCHC 33.4 g/dL (28.0-37.0); MCV 94.5 fL (80.0-100.0); MPV 7.9 fl. (7.2-11.1); RBC 3.99 mil/uL (4.20-5.00); RDW-CV 14.6 % (10.5-14.5)
[2019-06-13 06:01] LABS: CALCIUM 8.3 mg/dL (8.5-10.1); CREATININE 0.8 mg/dL (0.6-1.3); MAGNESIUM 1.8 mg/dL (1.8-2.4); POTASSIUM 4.5 mmol/L (3.5-5.1)
[2019-06-13 07:30] VITALS: BP 135/89
[2019-06-13] MEDS ORDERED: INDERAL 20 MG T20 M1 PO (09:25)
[2019-06-13] MEDS ORDERED: LEVALBUTER0.63 MG/3 INH (09:25)
[2019-06-13] MEDS ORDERED: NAPROXEN375 MG PO (09:25)
[2019-06-13] MEDS ORDERED: PREDNISONE 10 M10 MG PO (09:25)
[2019-06-13] MEDS ORDERED: WELLBUTRIN 75 M75 M1 PO (09:25)
[2019-06-13] MEDS ORDERED: CEFDINIR300 MG PO (09:26)
[2019-06-13 10:42] VITALS: BP 135/89
== END 2019-06-13 11:00 | disposition home or self-care (01) | DRG 202 ==
LOC: M.ERS 16:36 → M.TBA-ER 18:48 → M.2W 18:48 → M.TBA-ER 19:27 → M.2W 20:44 → M.ORTHSURG 06-12 00:37
PROVIDERS: Internal Medicine; Nurse Practitioner Psychiatric/Mental Health; ADMIT Internal Medicine
DX: J20.8 Acute bronchitis due to other specified organisms (principal); J44.0 Chronic obstructive pulmonary disease with (acute) lower respiratory infection; E87.1 Hypo-osmolality and hyponatremia; J96.11 Chronic respiratory failure with hypoxia; I16.1 Hypertensive emergency; J44.1 Chronic obstructive pulmonary disease with (acute) exacerbation; F12.10 Cannabis abuse, uncomplicated; F31.9 Bipolar disorder, unspecified; T50.995A Adverse effect of other drugs, medicaments and biological substances, initial encounter; G62.9 Polyneuropathy, unspecified; F17.210 Nicotine dependence, cigarettes, uncomplicated; Y92.89 Other specified places as the place of occurrence of the external cause; Z86.19 Personal history of other infectious and parasitic diseases; Z71.51 Drug abuse counseling and surveillance of drug abuser; Z71.6 Tobacco abuse counseling; Z88.5 Allergy status to narcotic agent; Z88.8 Allergy status to other drugs, medicaments and biological substances; Z91.048 Other nonmedicinal substance allergy status

== ENCOUNTER 2019-10-13 14:36 | Emergency (ER) | payer MEDICAID ==
[~2019-10-13] VITALS: Ht 165.1 cm; Wt 54.4 kg
[~2019-10-13 14:36] MED LIST changes: +IBUPROFEN 200200 M1 PO; +INDERAL 20 MG T20 M1 PO; +LEVALBUTER0.63 MG/3 INH; +MAXALT MLT5 MG PO; +NAPROXEN375 MG PO; +NICOTINE TRANSD14 M1 TRANSDERM; +PROCHLORPERAZINE5 M2 PO; +TYLENOL EXTRA500 MG PO; +WELLBUTRIN 75 M75 M1 PO
[2019-10-13] MEDS ORDERED: TOPAMAX100 MG PO (14:50)
[2019-10-13 15:32] LABS: ABSOLUTE EOSINOPHILS 0.1 thou/uL (0.0-0.7); ABSOLUTE LYMPHOCYTES 1.1 thou/uL (0.8-5.3); ABSOLUTE MONOCYTES 0.7 thou/uL (0.0-1.2); ABSOLUTE NEUTROPHILS 1.7 thou/uL (1.6-8.1); BASOPHILS 1.3 %; EOSINOPHILS 1.8 %; HEMOGLOBIN 13.1 gm/dL (12.0-15.0); LYMPHOCYTES 30.6 %; MCH 30.4 pg (26.0-34.0); MCHC 33.4 g/dL (28.0-37.0); MONOCYTES 19.9 %; MPV 8.7 fl. (7.2-11.1); NUCLEATED RBCS 0 /100WBC; PLATELET COUNT* 210 thou/uL (150-400); POLYS 46.4 %; RBC 4.29 mil/uL (4.20-5.00); RDW-CV 14.6 % (10.5-14.5); WBC 3.6 thou/uL (4.0-11.0)
[2019-10-13 15:40] LABS: CALCIUM 8.3 mg/dL (8.5-10.1); CREATININE 1.2 mg/dL (0.6-1.3); POTASSIUM 3.6 mmol/L (3.5-5.1)
[2019-10-13 15:52] LABS: ALBUMIN 3.3 g/dL (3.4-5.0); TOTAL BILIRUBIN 0.1 mg/dL (<0.1-1.0); TOTAL PROTEIN 6.9 g/dL (6.4-8.2)
[2019-10-13 15:55] LABS: INFLUENZA A ANTIGEN Negative (Negative); INFLUENZA B ANTIGEN Negative (Negative)
[2019-10-13] MEDS ORDERED: DOXYCYCLINE 10100 MG PO (16:19)
[2019-10-13] MEDS ORDERED: PREDNISONE 10 M10 MG PO (16:19)
[2019-10-13 16:41] VITALS: BP 125/85
--- NOTE | 2019-10-14 12:30 | EKG ---
[place] [address] ELECTROCARDIOGRAM REPORT Name: CLARISSEANANDLUCIA KOVACS [facility] [id number] Admission: 10/13/19 Attend Phys: Discharge: 10/13/19 Date of : 55 Report #: [id number] THIS REPORT FOR: //name// [facility] ED Test Date: 2019-10-13 Test Time: 14:45:23 Pat Name: ANAND ROBB Department: Room: Gender: F Dispensary Attendant: MEGA : 1955 Requested By: Yashira Bryant Order Number: [id number] MD: Ulises Robert Measurements Intervals [place] Rate: 84 P: 63 [place]: 130 QRS: 62 QRSD: 99 T: 65 QT: 398 QTc: 471 Interpretive Statements Sinus rhythm Compared to ECG 06/08/2019 17:10:23 No significant changes Electronically Signed On 10-14-2019 12:30:15 WOMEN DESIGNER by Ulises Robert [email or web address] <ELECTRONICALLY SIGNED> By: Ulises Robert MD, FAC 10/14/19 1230 1445 1445 Ulises Robert MD, FACC /EPI
== END 2019-10-13 16:42 | disposition home or self-care (01) ==
LOC: M.ERS 14:36
PROVIDERS: Nurse Practitioner Family
DX: J20.9 Acute bronchitis, unspecified (principal); J44.0 Chronic obstructive pulmonary disease with (acute) lower respiratory infection; R42 Dizziness and giddiness; F17.210 Nicotine dependence, cigarettes, uncomplicated; F12.10 Cannabis abuse, uncomplicated; F32.9 Major depressive disorder, single episode, unspecified; J96.11 Chronic respiratory failure with hypoxia; I10 Essential (primary) hypertension; E78.00 Pure hypercholesterolemia, unspecified; Z90.89 Acquired absence of other organs; Z86.19 Personal history of other infectious and parasitic diseases; Z88.8 Allergy status to other drugs, medicaments and biological substances

== ENCOUNTER 2019-10-29 14:56 | Emergency (ER) | payer MEDICAID ==
[~2019-10-29] VITALS: Ht 165.1 cm; Wt 54.0 kg
[~2019-10-29 14:56] MED LIST changes: +TOPAMAX100 MG PO
[2019-10-29] MEDS ORDERED: HYDROCODON-ACE1 EAC7 PO (16:16)
[2019-10-29 16:25] VITALS: BP 128/79
== END 2019-10-29 16:25 | disposition home or self-care (01) ==
LOC: M.ERS 14:56
DX: S80.02XA Contusion of left knee, initial encounter (principal); I10 Essential (primary) hypertension; F31.9 Bipolar disorder, unspecified; E78.00 Pure hypercholesterolemia, unspecified; F17.210 Nicotine dependence, cigarettes, uncomplicated; Z98.890 Other specified postprocedural states; Z90.89 Acquired absence of other organs; Z88.5 Allergy status to narcotic agent; Z88.8 Allergy status to other drugs, medicaments and biological substances; W00.0XXA Fall on same level due to ice and snow, initial encounter; Y92.89 Other specified places as the place of occurrence of the external cause; Y93.89 Activity, other specified; Y99.8 Other external cause status

== ENCOUNTER 2019-11-05 15:51 | Inpatient (IN) | payer MEDICAID ==
[~2019-11-05] VITALS: Ht 167.6 cm; Wt 58.5 kg
[~2019-11-05 15:51] MED LIST changes: +HYDROCODON-ACE1 EAC7 PO
[2019-11-05 15:53] VITALS: BP 141/83
[2019-11-05 16:19] LABS: ABSOLUTE BASOPHILS 0.1 thou/uL (0.0-0.2); ABSOLUTE EOSINOPHILS 0.3 thou/uL (0.0-0.7); ABSOLUTE LYMPHOCYTES 1.1 thou/uL (0.8-5.3); ABSOLUTE MONOCYTES 0.5 thou/uL (0.0-1.2); BASOPHILS 1.3 %; EOSINOPHILS 5.5 %; HEMATOCRIT 32.2 % (37.0-47.0); LYMPHOCYTES 22.5 %; MCH 30.9 pg (26.0-34.0); MCHC 34.2 g/dL (28.0-37.0); MCV 90.6 fL (80.0-100.0); MONOCYTES 9.5 %; MPV 7.7 fl. (7.2-11.1); NUCLEATED RBCS 0 /100WBC; PLATELET COUNT* 367 thou/uL (150-400); POLYS 61.2 %; RBC 3.55 mil/uL (4.20-5.00); WBC 4.9 thou/uL (4.0-11.0)
[2019-11-05 16:33] LABS: CALCIUM 7.9 mg/dL (8.5-10.1); CREATININE 0.8 mg/dL (0.6-1.3); POTASSIUM 4.2 mmol/L (3.5-5.1)
[2019-11-05 16:34] LABS: APTT 27.8 Seconds (25.0-31.3); PROTIME 10.2 Seconds (9.20-11.50)
[2019-11-05 16:43] LABS: ALBUMIN 2.6 g/dL (3.4-5.0); TOTAL BILIRUBIN 0.2 mg/dL (<0.1-1.0)
[2019-11-05 18:29] LABS: URINE BILIRUBIN NEGATIVE (Negative); URINE BLOOD NEGATIVE (Negative); URINE CLARITY CLEAR; URINE COLOR YELLOW; URINE GLUCOSE-RANDOM NEGATIVE (Negative); URINE KETONES NEGATIVE (Negative); URINE LEUKOCYTES-REFLEX NEGATIVE (Negative); URINE NITRITE-REFLEX NEGATIVE (Negative); URINE PROTEIN NEGATIVE (Negative); URINE SPECIFIC GRAVITY <= 1.005 (1.005-1.030); URINE UROBILINOGEN 0.2 E.U./dl (0.2-1.0)
[2019-11-05 19:57] LABS: AMP/METHAMP Negative (Negative); BARBITURATES POSITIVE (Negative); BENZODIAZEPINES Negative (Negative); COCAINE Negative (Negative); METHADONE Negative (Negative); OPIATES Negative (Negative); PCP Negative (Negative); THC Negative (Negative)
[2019-11-05 22:30] VITALS: BP 164/95
[2019-11-05 23:16] VITALS: BP 162/92
[2019-11-05] MEDS ORDERED: TIZANIDINE HCL 22 M1 PO ×2 (23:39→23:41)
[2019-11-05] MEDS ORDERED: TESSALON PERLE100 M1 PO ×2 (23:40→23:42)
[2019-11-06 04:45] LABS: ABSOLUTE BASOPHILS 0.1 thou/uL (0.0-0.2); ABSOLUTE EOSINOPHILS 0.5 thou/uL (0.0-0.7); ABSOLUTE MONOCYTES 0.5 thou/uL (0.0-1.2); BASOPHILS 1.8 %; HEMATOCRIT 30.2 % (37.0-47.0); HEMOGLOBIN 10.4 gm/dL (12.0-15.0); LYMPHOCYTES 39.7 %; MCHC 34.5 g/dL (28.0-37.0); MCV 89.9 fL (80.0-100.0); MONOCYTES 9.3 %; MPV 8.2 fl. (7.2-11.1); NUCLEATED RBCS 0 /100WBC; PLATELET COUNT* 360 thou/uL (150-400); POLYS 40.2 %; RBC 3.36 mil/uL (4.20-5.00); RDW-CV 14.8 % (10.5-14.5)
[2019-11-06 04:52] LABS: CALCIUM 7.9 mg/dL (8.5-10.1); CREATININE 0.7 mg/dL (0.6-1.3); POTASSIUM 3.7 mmol/L (3.5-5.1)
[2019-11-06 07:40] VITALS: BP 147/91
--- NOTE | 2019-11-06 07:48 | NUR ---
ASSUMED CARE OF PT 11/05/19 AT APPROX 2315, PT A&OX4, PT ON ROOM AIR, VSS, PAIN MEDS ADMINISTERED SCHEDULED, ASSESSMENTS AND HOURLY ROUNDINGS COMPLETED. REPORT GIVEN AND CARE OF PT TRANSFERED TO DAY SHIFT NURSELINDA 11/06/19 AT APPROX 0730.
[2019-11-06] MEDS ORDERED: CEFDINIR300 MG PO (09:15)
[2019-11-06 10:11] VITALS: BP 147/91
[2019-11-06 16:12] VITALS: BP 147/91
--- NOTE | 2019-11-06 16:13 | NUR ---
PT REMAINED ALERT AND ORIENTED. PT GIVEN HOME MEDS. IV REMOVED. PT GIVEN DISCHARGE INFORMATION, CARE NOTES, AND PRESCRIPTIONS. PT LEFT VIA WHEELCHAIR WITH NURSING STAFF TO HOME.
--- NOTE | 2019-11-07 10:04 | EKG ---
[place] [address] ELECTROCARDIOGRAM REPORT Name: ANAND ROBB Room: [address] DIS IN M.R.#: [id number] Admission: 11/05/19 Attend Phys: Gerard Yan MD Discharge: 11/06/19 Date of : 55 Report #: [id number] THIS REPORT FOR: //name// [facility] ED Test Date: 2019-11-05 Test Time: 16:21:25 Pat Name: ANAND ROBB Department: Room: [facility] Gender: F Chlorobutadiene Scrubber Operator: MAKEDA : 1955 Requested By: Fuad Harrison Order Number: [id number] MD: Ulises Robert Measurements Intervals [place] Rate: 72 P: 76 [place]: 138 QRS: 62 QRSD: 86 T: 64 QT: 403 QTc: 442 Interpretive Statements Sinus rhythm Borderline low voltage, extremity leads Baseline wander in lead(s) I,III,aVL,aVF,V4 Compared to ECG 10/13/2019 14:45:23 No significant changes Electronically Signed On 11-07-2019 10:03:26 MAINTENANCE SUPERVISOR 2ND SHIFT by Ulises Robert [email or web address] <ELECTRONICALLY SIGNED> By: Ulises Robert MD, FAC 11/07/19 1003 1621 1621 Ulises Robert MD, FAC /EPI
== END 2019-11-06 16:15 | disposition home or self-care (01) | DRG 194 ==
LOC: M.ERS 15:51 → M.TBA-ER 18:37 → M.ORTHSURG 22:37
PROVIDERS: Family Medicine; ADMIT Internal Medicine
DX: J18.9 Pneumonia, unspecified organism (principal); S32.10XA Unspecified fracture of sacrum, initial encounter for closed fracture; E87.1 Hypo-osmolality and hyponatremia; J44.0 Chronic obstructive pulmonary disease with (acute) lower respiratory infection; J96.10 Chronic respiratory failure, unspecified whether with hypoxia or hypercapnia; F32.9 Major depressive disorder, single episode, unspecified; J44.9 Chronic obstructive pulmonary disease, unspecified; I10 Essential (primary) hypertension; G62.9 Polyneuropathy, unspecified; E78.00 Pure hypercholesterolemia, unspecified; F17.210 Nicotine dependence, cigarettes, uncomplicated; F41.9 Anxiety disorder, unspecified; G89.29 Other chronic pain; R25.1 Tremor, unspecified; G43.909 Migraine, unspecified, not intractable, without status migrainosus; Z86.19 Personal history of other infectious and parasitic diseases; Z88.6 Allergy status to analgesic agent; Z88.8 Allergy status to other drugs, medicaments and biological substances; Z82.49 Family history of ischemic heart disease and other diseases of the circulatory system; Z83.6 Family history of other diseases of the respiratory system; W18.39XA Other fall on same level, initial encounter; Y93.89 Activity, other specified; Y92.89 Other specified places as the place of occurrence of the external cause; Y99.8 Other external cause status

== ENCOUNTER 2020-05-04 11:06 | Emergency (ER) | payer MEDICAID ==
[~2020-05-04] VITALS: Ht 157.5 cm; Wt 53.5 kg
[~2020-05-04 11:06] MED LIST changes: +TESSALON PERLE100 M1 PO; +TIZANIDINE HCL 22 M1 PO
[2020-05-04 12:13] LABS: ABSOLUTE BASOPHILS 0.1 thou/uL (0.0-0.2); ABSOLUTE EOSINOPHILS 0.4 thou/uL (0.0-0.7); ABSOLUTE LYMPHOCYTES 1.5 thou/uL (0.8-5.3); ABSOLUTE MONOCYTES 0.4 thou/uL (0.0-1.2); ABSOLUTE NEUTROPHILS 3.8 thou/uL (1.6-8.1); BASOPHILS 1.4 %; HEMATOCRIT 37.6 % (37.0-47.0); HEMOGLOBIN 12.7 gm/dL (12.0-15.0); LYMPHOCYTES 23.9 %; MCH 31.3 pg (26.0-34.0); MCHC 33.9 g/dL (28.0-37.0); MCV 92.4 fL (80.0-100.0); MONOCYTES 6.5 %; MPV 8.2 fl. (7.2-11.1); NUCLEATED RBCS 0 /100WBC; PLATELET COUNT* 277 thou/uL (150-400); POLYS 62.2 %; RBC 4.07 mil/uL (4.20-5.00); RDW-CV 15.2 % (10.5-14.5); WBC 6.1 thou/uL (4.0-11.0)
[2020-05-04 12:21] LABS: CREATININE 0.9 mg/dL (0.6-1.3); POTASSIUM 4.7 mmol/L (3.5-5.1)
[2020-05-04 12:32] LABS: ALBUMIN 3.4 g/dL (3.4-5.0); TOTAL BILIRUBIN 0.2 mg/dL (<0.1-1.0); TOTAL PROTEIN 6.4 g/dL (6.4-8.2)
[2020-05-04] MEDS ORDERED: PREDNISONE50 MG PO (13:48)
[2020-05-04 15:14] VITALS: BP 152/85
--- NOTE | 2020-05-04 15:17 | EKG ---
[place] [address] ELECTROCARDIOGRAM REPORT Name: ROBBANAND Room: [facility]#: [id number] Admission: 05/04/20 Attend Phys: Discharge: 05/04/20 Date of : 55 Date of Service: 05/04/20 1123 Report #: [id number] THIS REPORT FOR: //name// [facility] ED Test Date: 2020-05-04 Test Time: 11:23:56 Pat Name: ANAND ROBB Department: Room: Gender: F Medical Case Worker: [facility] : 1955 Requested By: Jarrell Khan Order Number: [id number] MD: Matt Connolly Measurements Intervals [place] Rate: 64 P: 82 [place]: 145 QRS: 71 QRSD: 81 T: 71 QT: 411 QTc: 424 Interpretive Statements Sinus rhythm Compared to ECG 11/05/2019 16:21:25 No significant changes Electronically Signed On 05-04-2020 15:17:01 CDT by Matt Connolly [email or web address] <ELECTRONICALLY SIGNED> By: Matt Connolly MD, [facility] 05/04/20 1517 1123 1123 Matt Connolly MD, [facility] /EPI
== END 2020-05-04 15:14 | disposition home or self-care (01) ==
LOC: M.ERS 11:06
PROVIDERS: Emergency Medicine Emergency Medical Services
DX: J44.1 Chronic obstructive pulmonary disease with (acute) exacerbation (principal); I10 Essential (primary) hypertension; E78.00 Pure hypercholesterolemia, unspecified; G62.9 Polyneuropathy, unspecified; F31.9 Bipolar disorder, unspecified; F17.210 Nicotine dependence, cigarettes, uncomplicated; Z90.49 Acquired absence of other specified parts of digestive tract; Z98.890 Other specified postprocedural states; Z91.048 Other nonmedicinal substance allergy status; Z88.6 Allergy status to analgesic agent; Z88.8 Allergy status to other drugs, medicaments and biological substances

== ENCOUNTER 2020-10-01 12:34 | Emergency (ER) | payer MEDICAID ==
[~2020-10-01] VITALS: Ht 165.1 cm; Wt 54.4 kg
[2020-10-01 13:52] LABS: ABSOLUTE BASOPHILS 0.1 thou/uL (0.0-0.2); ABSOLUTE EOSINOPHILS 0.2 thou/uL (0.0-0.7); ABSOLUTE LYMPHOCYTES 1.3 thou/uL (0.8-5.3); ABSOLUTE MONOCYTES 0.4 thou/uL (0.0-1.2); ABSOLUTE NEUTROPHILS 2.3 thou/uL (1.6-8.1); BASOPHILS 1.3 %; EOSINOPHILS 4.7 %; HEMATOCRIT 36.4 % (37.0-47.0); HEMOGLOBIN 12.1 gm/dL (12.0-15.0); LYMPHOCYTES 30.6 %; MCHC 33.1 g/dL (28.0-37.0); MCV 90.6 fL (80.0-100.0); MONOCYTES 9.2 %; MPV 7.5 fl. (7.2-11.1); NUCLEATED RBCS 0 /100WBC; PLATELET COUNT* 278 thou/uL (150-400); POLYS 54.2 %; RBC 4.02 mil/uL (4.20-5.00); RDW-CV 15.5 % (10.5-14.5); WBC 4.3 thou/uL (4.0-11.0)
[2020-10-01 14:02] LABS: URINE BILIRUBIN NEGATIVE (Negative); URINE BLOOD NEGATIVE (Negative); URINE CLARITY CLEAR; URINE COLOR YELLOW; URINE GLUCOSE-RANDOM NEGATIVE (Negative); URINE KETONES NEGATIVE (Negative); URINE LEUKOCYTES-REFLEX NEGATIVE (Negative); URINE NITRITE-REFLEX NEGATIVE (Negative); URINE PROTEIN NEGATIVE (Negative); URINE UROBILINOGEN 0.2 E.U./dl (0.2-1.0)
[2020-10-01 14:06] LABS: INFLUENZA A ANTIGEN Negative (Negative); INFLUENZA B ANTIGEN Negative (Negative)
[2020-10-01 14:25] LABS: CALCIUM 8.5 mg/dL (8.5-10.1); CREATININE 0.9 mg/dL (0.6-1.3); POTASSIUM 4.1 mmol/L (3.5-5.1)
[2020-10-01 14:31] LABS: ALBUMIN 3.1 g/dL (3.4-5.0); TOTAL BILIRUBIN 0.3 mg/dL (<0.1-1.0); TOTAL PROTEIN 5.8 g/dL (6.4-8.2)
[2020-10-01] MEDS ORDERED: MEDROLDOSEPACK PO (15:34)
[2020-10-01] MEDS ORDERED: VENTOLIN HFA 1818 GM INH (15:36)
[2020-10-01 15:50] VITALS: BP 149/82
--- NOTE | 2020-10-01 15:54 | EKG ---
[place] [address] ELECTROCARDIOGRAM REPORT Name: CLARISSEANANDLUCIA KOVACS Room: [facility]#: [id number] Admission: 10/01/20 Attend Phys: Discharge: Date of : 55 Date of Service: 10/01/20 1336 Report #: [id number] THIS REPORT FOR: //name// [facility] ED Test Date: 2020-10-01 Test Time: 13:36:29 Pat Name: ANAND ROBB Department: Room: Gender: F Psychiatric Nurse: : 1955 Requested By: Yashira Bryant Order Number: [id number] MD: Ulises Robert Measurements Intervals [place] Rate: 66 P: 80 [place]: 159 QRS: 73 QRSD: 94 T: 62 QT: 403 QTc: 423 Interpretive Statements Sinus rhythm Compared to ECG 05/04/2020 11:23:56 No significant changes Electronically Signed On 10-01-2020 15:54:28 AGRISCIENCE TECHNOLOGY INSTRUCTOR by Ulises Robert [email or web address] <ELECTRONICALLY SIGNED> By: Ulises Robert MD, [facility] 10/01/20 1554 35 Ulises Robert MD, FACC /EPI
== END 2020-10-01 15:50 | disposition home or self-care (01) ==
LOC: M.ERS 12:34
PROVIDERS: Nurse Practitioner Family
DX: J44.1 Chronic obstructive pulmonary disease with (acute) exacerbation (principal); Z20.828 Contact with and (suspected) exposure to other viral communicable diseases; J96.11 Chronic respiratory failure with hypoxia; I10 Essential (primary) hypertension; E78.00 Pure hypercholesterolemia, unspecified; G62.9 Polyneuropathy, unspecified; F17.210 Nicotine dependence, cigarettes, uncomplicated; Z88.5 Allergy status to narcotic agent; Z88.8 Allergy status to other drugs, medicaments and biological substances; Z86.19 Personal history of other infectious and parasitic diseases; Z90.89 Acquired absence of other organs; Z98.890 Other specified postprocedural states

== ENCOUNTER 2021-04-19 16:38 | Emergency (ER) | payer MEDICAID ==
[~2021-04-19] VITALS: Ht 167.6 cm; Wt 48.5 kg
[2021-04-19] MEDS ORDERED: EMGALITY120 MG/1 M SUBQ (16:50)
[2021-04-19] MEDS ORDERED: COMBIVENT INH (16:53)
[2021-04-19] MEDS ORDERED: PROAIR HFA8.5 GM INH (16:55)
[2021-04-19] MEDS ORDERED: PREDNISONE 20 M20 MG PO (16:58)
[2021-04-19] MEDS ORDERED: ONDANSETRON HCL4 M2 PO (16:59)
[2021-04-19 18:09] LABS: ABSOLUTE BASOPHILS 0.1 thou/uL (0.0-0.2); ABSOLUTE EOSINOPHILS 0.3 thou/uL (0.0-0.7); ABSOLUTE LYMPHOCYTES 1.7 thou/uL (0.8-5.3); ABSOLUTE MONOCYTES 0.8 thou/uL (0.0-1.2); ABSOLUTE NEUTROPHILS 5.1 thou/uL (1.6-8.1); BASOPHILS 0.9 %; EOSINOPHILS 3.3 %; HEMATOCRIT 34.2 % (37.0-47.0); HEMOGLOBIN 11.6 gm/dL (12.0-15.0); LYMPHOCYTES 21.9 %; MCH 29.9 pg (26.0-34.0); MCHC 33.8 g/dL (28.0-37.0); MCV 88.5 fL (80.0-100.0); MONOCYTES 9.5 %; MPV 7.4 fl. (7.2-11.1); NUCLEATED RBCS 0 /100WBC; PLATELET COUNT* 231 thou/uL (150-400); POLYS 64.4 %; RBC 3.86 mil/uL (4.20-5.00)
[2021-04-19 18:29] LABS: CALCIUM 7.8 mg/dL (8.5-10.1); CREATININE 0.9 mg/dL (0.6-1.3); POTASSIUM 4.4 mmol/L (3.5-5.1)
[2021-04-19 18:41] LABS: ALBUMIN 3.1 g/dL (3.4-5.0); TOTAL BILIRUBIN 0.3 mg/dL (<0.1-1.0)
[2021-04-19] MEDS ORDERED: HYDROCODON-ACE1 EAC7 PO (18:46)
[2021-04-19 18:54] VITALS: BP 141/86
[2021-04-20] MEDS ORDERED: HYDROCODON-ACE1 EAC7 PO (13:16)
--- NOTE | 2021-04-22 14:30 | EKG ---
[place] [address] ELECTROCARDIOGRAM REPORT Name: ANAND ROBB Room: [facility]#: [id number] Admission: 04/19/21 Attend Phys: Discharge: 04/19/21 Date of : 55 Date of Service: 04/19/21 1723 Report #: [id number] THIS REPORT FOR: //name// [facility] ED Test Date: 2021-04-19 Test Time: 17:23:27 Pat Name: ANAND ROBB Department: Room: Gender: F Toilet And Laundry Soap Supervisor: : 1955 Requested By: Fuad Harrison Order Number: [id number] MD: Matt Connolly Measurements Intervals [place] Rate: 78 P: 69 FL: 137 QRS: 51 QRSD: 80 T: 59 QT: 393 QTc: 448 Interpretive Statements Sinus rhythm Low voltage, extremity leads Compared to ECG 10/01/2020 13:36:29 Low QRS voltage now present Electronically Signed On 04-22-2021 14:29:49 CDT by Matt Connolly [email or web address] <ELECTRONICALLY SIGNED> By: Matt Connolly MD, [facility] 04/22/21 1429 1723 1723 Matt Connolly MD, [facility] /EPI
== END 2021-04-19 18:59 | disposition home or self-care (01) ==
LOC: M.ERS 16:38
PROVIDERS: Family Medicine
DX: S01.81XA Laceration without foreign body of other part of head, initial encounter (principal); F17.210 Nicotine dependence, cigarettes, uncomplicated; E78.00 Pure hypercholesterolemia, unspecified; J44.9 Chronic obstructive pulmonary disease, unspecified; I10 Essential (primary) hypertension; Z88.6 Allergy status to analgesic agent; Z88.5 Allergy status to narcotic agent; Z79.1 Long term (current) use of non-steroidal anti-inflammatories (NSAID); Z79.899 Other long term (current) drug therapy; Z86.19 Personal history of other infectious and parasitic diseases; Z90.89 Acquired absence of other organs; W19.XXXA Unspecified fall, initial encounter; Y93.89 Activity, other specified; Y92.89 Other specified places as the place of occurrence of the external cause; Y99.8 Other external cause status

== ENCOUNTER 2021-09-07 14:50 | Emergency (ER) | payer MEDICAID ==
[~2021-09-07] VITALS: Ht 167.6 cm; Wt 49.9 kg
[~2021-09-07 14:50] MED LIST changes: +EMGALITY120 MG/1 M SUBQ; +ONDANSETRON HCL4 M2 PO; +PREDNISONE 20 M20 MG PO; +PROAIR HFA8.5 GM INH
[2021-09-07 16:02] LABS: URINE BILIRUBIN NEGATIVE (Negative); URINE BLOOD NEGATIVE (Negative); URINE CLARITY CLEAR; URINE COLOR YELLOW; URINE GLUCOSE-RANDOM NEGATIVE (Negative); URINE KETONES NEGATIVE (Negative); URINE LEUKOCYTES-REFLEX NEGATIVE (Negative); URINE NITRITE-REFLEX NEGATIVE (Negative); URINE PROTEIN NEGATIVE (Negative); URINE SPECIFIC GRAVITY 1.015 (1.005-1.030); URINE UROBILINOGEN 0.2 E.U./dl (0.2-1.0)
[2021-09-07 16:32] VITALS: BP 116/80
== END 2021-09-07 16:40 | disposition home or self-care (01) ==
LOC: M.ERS 14:50
PROVIDERS: Family Medicine
DX: R35.0 Frequency of micturition (principal); F41.9 Anxiety disorder, unspecified; F12.90 Cannabis use, unspecified, uncomplicated; F17.210 Nicotine dependence, cigarettes, uncomplicated; J44.9 Chronic obstructive pulmonary disease, unspecified; I10 Essential (primary) hypertension; G62.9 Polyneuropathy, unspecified; E78.00 Pure hypercholesterolemia, unspecified; Z88.5 Allergy status to narcotic agent; Z79.899 Other long term (current) drug therapy; Z98.890 Other specified postprocedural states